=== PATIENT | female | born 2000 | race Hispanic/Latino ===

== ENCOUNTER 2020-02-16 10:57 | Emergency (ER) | payer SELFPAY ==
[2020-02-16 11:07] VITALS: BP 126/75
[2020-02-16] MEDS ORDERED: ONDANSETRON 4 MG ODT TAB PO ONE (11:41)
[2020-02-16] MEDS ORDERED: FAMOTIDINE 20 MG TAB PO ONE (11:42)
[2020-02-16] MEDS ORDERED: ACETAMINOPHEN 325 MG/10.15 ML ORAL LIQD UNIT DOSE PO ONE (11:43)
--- NOTE | 2020-02-16 11:43 | Emergency Department Report ---
ED General Adult HPI - General Chief complaint: Nausea/Vomiting/Diarrhea Stated complaint: COVID/SOB PUI?: Yes Time Seen by Provider: 02/16/20 11:20 Source: patient, RN notes reviewed Mode of arrival: Ambulatory Limitations: No Limitations - History of Present Illness Initial comments: During the entire history and physical, I had on complete personal protective equipment. I was chaperoned by nurse Allen Zaldivar The patient is a pleasant 19-year-old female who is not known to myself previously. She does not have a local primary care doctor. She states that she is not . She states that she was diagnosed with COVID-19 10 days ago at another hospital. She has been prescribed albuterol. She presents to the ER today with a complaint of shortness of breath, malaise and fatigue, nausea and vomiting, states initial emesis clear, then clear with flecks of blood, generalized malaise and fatigue There is no complaint of headache, neck pain, chest pain, abdominal pain, positive shortness of breath, positive dysuria, positive green and dark stool. Symptoms have been going on for the past week or so, nausea and vomiting started yesterday, she vomited 3 times in total, she went to another hospital, [facility], and appears to have been discharged. Shortness of breath is intermittent, worsens with physical exertion and decreases with rest. Denies DVT and pulmonary embolism risk factors -: Gradual, days(s) Consistency: intermittent Improves with: rest Worsens with: movement - Related Data Previous Rx's Medication Instructions Recorded Last Taken Type Acetaminophen [Non-Aspirin Extra 500 mg PO Q6HR PRN #30 tablet 02/16/20 Unknown Rx Strength] Albuterol Sulfate [Proair 90 mcg IH Q4HR PRN #2 aer.pow.ba 02/16/20 Unknown Rx Respiclick] Famotidine [Pepcid] 20 mg PO BID #60 tablet 02/16/20 Unknown Rx Ondansetron [Zofran Odt] 4 mg PO Q8HR PRN #20 tab.rapdis 02/16/20 Unknown Rx Allergies Allergy/AdvReac Type Severity Reaction Status Date / Time No Known Allergies Allergy Unverified 02/16/20 11:05 ED Review of Systems ROS: Stated complaint: COVID/SOB Other details as noted in HPI Constitutional: fever, malaise, weakness Eyes: denies: eye discharge ENT: congestion Respiratory: cough Cardiovascular: dyspnea on exertion Gastrointestinal: nausea, vomiting. denies: abdominal pain, constipation, melena, hematochezia Genitourinary: dysuria Musculoskeletal: arthralgia, myalgia Skin: denies: lesions Neurological: weakness Psychiatric: anxiety Hematological/Lymphatic: denies: easy bleeding ED Past Medical Hx - Past Medical History Previous Medical History?: Yes Additional medical history: Hx anemia. COVID+ 02/2020 - Surgical History Past Surgical History?: No - Medications Home Medications: Home Medications Medication Instructions Recorded Confirmed Last Taken Type Acetaminophen [Non-Aspirin Extra 500 mg PO Q6HR PRN #30 tablet 02/16/20 Unknown Rx Strength] Albuterol Sulfate [Proair 90 mcg IH Q4HR PRN #2 aer.pow.ba 02/16/20 Unknown Rx Respiclick] Famotidine [Pepcid] 20 mg PO BID #60 tablet 02/16/20 Unknown Rx Ondansetron [Zofran Odt] 4 mg PO Q8HR PRN #20 tab.rapdis 02/16/20 Unknown Rx ED Physical Exam - General Limitations: No Limitations General appearance: alert, in no apparent distress - Head Head exam: Present: atraumatic, normocephalic - Eye Eye exam: Present: normal appearance, EOMI. Absent: nystagmus - ENT ENT exam: Present: normal exam, normal orophraynx, mucous membranes moist, normal external ear exam - Neck Neck exam: Present: normal inspection, full ROM. Absent: tenderness, meningismus - Respiratory Respiratory exam: Present: normal lung sounds bilaterally. Absent: respiratory distress - Cardiovascular Cardiovascular Exam: Present: regular rate, normal rhythm, normal heart sounds. Absent: bradycardia, tachycardia, irregular rhythm, systolic murmur, diastolic murmur, rubs, gallop - GI/Abdominal GI/Abdominal exam: Present: soft, normal bowel sounds. Absent: distended, tenderness, guarding, rebound, rigid, pulsatile mass - Rectal Rectal exam: Present: normal inspection, normal rectal tone, heme (-) stool, other (chaperoned by BOBBY Zaldivar). Absent: heme (+) stool, bloody stool, fecal impaction, hemorrhoids - Extremities Exam Extremities exam: Present: normal inspection, full ROM, other (2+ pulses noted in the bilateral upper and lower extremities. There is no palpable cord. negative Homans sign. Muscular compartments are soft. The pelvis is stable.). Absent: pedal edema, calf tenderness - Back Exam Back exam: Present: normal inspection, full ROM. Absent: tenderness, CVA tenderness (R), CVA tenderness (L), paraspinal tenderness, vertebral tenderness - Neurological Exam Neurological exam: Present: alert, oriented X3, normal gait, other (No facial droop. Tongue midline. Extraocular movements intact bilaterally. Facial sensation intact to light touch in V1, V2, V3 distribution bilaterally. 5 and a 5 strength in 4 extremities. Sensation intact to light touch in 4 extremities.). Absent: motor sensory deficit - Psychiatric Psychiatric exam: Present: anxious - Skin Skin exam: Present: warm, dry, intact, normal color. Absent: rash ED Course Vital Signs 02/16/20 11:06 Temperature 99.7 F H Pulse Rate 99 H Respiratory 18 Rate Blood Pressure 126/75 [Right] O2 Sat by Pulse 98 Oximetry - Reevaluation(s) Reevaluation #1: 02/16/20 12:31 Differential diagnosis, including but not limited to: COVID-19, pneumonia, urinary tract infection, gastritis, GERD, reflux, Dorothy-Barajas tear Assessment and plan: 19-year-old female, recently diagnosed with COVID-19, presenting with shortness of breath, nausea vomiting, complaint of blood-tinged emesis, malaise and fatigue. The patient is afebrile with reassuring vital signs. She is guaiac negative on rectal exam, and hemoglobin, hematocrit are acceptable at this time. The patient is most likely experiencing the natural history of COVID-19. Patient was given an exercise trial, which she ambulated for 5 to 6 minutes on room oxygen, and maintained an appropriate oxygen saturations; saturations staye d 95 to 97%. We will treat her symptoms supportively and symptomatically. Appropriate screening laboratory studies, urinalysis pending at this time. We will reassess after her data points have resulted. Discussed this plan of care with the patient, who verbalized understanding. She was also given oral medication, which she did not vomit. 02/16/20 13:31 Laboratory studies are reviewed and appreciated. The urinalysis is not consistent with a urinary tract infection. The x-ray the chest is fairly unremarkable. Call the patient on her phone number, she endorses feeling much improved. I discussed the significance of the patient's examination, laboratory studies, x-ray, EKG, etc. She verbalizes understanding. Suspect that patient is experiencing the natural history of underlying COVID-19. She is suitable for discharge at this point in time. She verbalizes understanding. ED Medical Decision Making - Lab Data Result diagrams: 02/16/20 11:49 02/16/20 11:49 Vital Signs - 24 hr 02/16/20 11:06 Temperature 99.7 F H Pulse Rate 99 H Respiratory 18 Rate Blood Pressure 126/75 [Right] O2 Sat by Pulse 98 Oximetry Lab Results 02/16/20 02/16/20 Range/Units 11:49 11:49 WBC 6.2 (4.5-11.0) K/mm3 RBC 4.88 (3.65-5.03) M/mm3 Hgb 10.7 (10.1-14.3) gm/dl Hct 34.1 (30.3-42.9) % MCV 70 L (79-97) fl MCH 22 L (28-32) pg MCHC 31 (30-34) % RDW 18.2 H (13.2-15.2) % Plt Count 379 (140-440) K/mm3 Lymph % (Auto) 31.3 (13.4-35.0) % [place] % (Auto) 6.9 (0.0-7.3) % Eos % (Auto) 1.5 (0.0-4.3) % Baso % (Auto) 1.1 (0.0-1.8) % Lymph # 1.9 (1.2-5.4) K/mm3 [place] # 0.4 (0.0-0.8) K/mm3 Eos # 0.1 (0.0-0.4) K/mm3 Baso # 0.1 (0.0-0.1) K/mm3 Seg Neutrophils % 59.2 (40.0-70.0) % Seg Neutrophils # 3.7 (1.8-7.7) K/mm3 PT 14.1 (12.2-14.9) Sec. INR 1.11 (0.87-1.13) APTT 34.5 (24.2-36.6) Sec. - EKG Data -: EKG Interpreted by Co EKG shows normal: sinus rhythm Rate: normal - EKG Data When compared to previous EKG there are: previous EKG unavailable 02/16/20 12:28 Sinus rhythm, 86 bpm, there is a borderline leftward axis deviation, Q waves noted in 1 and aVL, early repolarization, motion artifact, MT interval within normal limits, QTC within normal limits, there is no prior EKG available for comparison, the EKG is not a STEMI - Radiology Data Radiology results: pending, report reviewed, image reviewed Print Report Referring Physician: GREGOR CASTELAN Patient Name: SHERIF MATA Date of : 2000 Sex: Female Report Date: 2020-02-16 Report Status: Finalized Findings [facility] [address] [place] [address] XRay Report Signed Patient: SHERIF MATA MR#: [id number] : 2000 Acct:[id number] Age/Sex: 19 / F ADM Date: 02/16/20 Loc: ED Attending Dr: Ordering Physician: GREGOR CASTELAN MD Date of Service: 02/16/20 Procedure(s): XR chest 1V ap Accession Number(s): [id number] cc: GREGOR CASTELAN MD Fluoro Time In Minutes: CHEST 1 VIEW 02/16/2020 11:59 AM INDICATION / CLINICAL INFORMATION: Nausea, vomiting, weakness. COMPARISON: None available. FINDINGS: SUPPORT DEVICES: None. HEART / MEDIASTINUM: No significant abnormality. LUNGS / PLEURA: No significant pulmonary or pleural abnormality. No pneumothorax. ADDITIONAL FINDINGS: No significant additional findings. IMPRESSION: 1. No acute findings. Signer Name: Emmett Vaca MD Signed: 02/16/2020 1:04 PM Workstation Name: [id number] Transcribed By: JACOB Dictated By: Emmett Vaca MD Electronically Authenticated By: Emmett Vaca MD Signed Date/Time: 02/16/20 1304 DD/ 1304 TD/TT: Critical Care Time: Yes Critical care time in (mins) excluding proc time.: 35 Critical care attestation.: If time is entered above; I have spent that time in minutes in the direct care of this critically ill patient, excluding procedure time. Critical Care Time: Critical care time includes time spent donning and doffing personal protective equipment, post patient contact decontamination, time spent performing history, physical, review of laboratory studies, radiology studies, EKG, and time spent discussing with patient in person significance of findings, natural expected history of COVID. This does not include procedure time. ED Disposition Clinical Impression: Suspected 2019 novel coronavirus infection, History of nausea and vomiting Disposition: DC-01 TO HOME OR SELFCARE Is pt being admited?: No Does the pt Need Aspirin: No Condition: Stable Instructions: COVID-19 Additional Instructions: Avoid consumption of Motrin, ibuprofen, Naprosyn, Aleve, heavy and spicy food. Avoid consumption of heavy and/or spicy food and alcohol. Take the prescribed medications as needed and directed. Please follow-up with your primary care doctor within 7 to 10 days. Suspect that patient is experiencing the natural history of COVID-19. Symptoms may include shortness of breath, malaise, fatigue, nausea, vomiting, diarrhea, body aches. Please make certain to self isolate and self quarantine, avoid exposure to the very young and very old, and avoid exposure and interactions with individuals with chronic medical conditions. Wash hands frequently, thoroughly, and often. Return to the emergency room right away with new pain, worsening pain, migration of pain, rectal vomiting, change in mental status, confusion, inability to tolerate liquid feeds, new, worsened or different symptoms not present on the initial emergency room evaluation. Referrals: MONICA MANZO MD [Staff Physician] - 7-10 days [facility] [Provider Group] - 7-10 days Forms: Work/School Release Form(ED)
[2020-02-16 12:16] LABS: Basophils # (Auto) 0.1 K/mm3 (0.0-0.1); Basophils % (Auto) 1.1 % (0.0-1.8); Eosinophils # (Auto) 0.1 K/mm3 (0.0-0.4); Eosinophils % (Auto) 1.5 % (0.0-4.3); Hematocrit 34.1 % (30.3-42.9); Hemoglobin 10.7 gm/dl (10.1-14.3); Lymphocytes # (Auto) 1.9 K/mm3 (1.2-5.4); Lymphocytes % (Auto) 31.3 % (13.4-35.0); Mean Corpuscular HGB Conc 31 % (30-34); Mean Corpuscular Volume 70 fl (79-97); Monocytes # (Auto) 0.4 K/mm3 (0.0-0.8); Monocytes % (Auto) 6.9 % (0.0-7.3); Platelet Count 379 K/mm3 (140-440); Red Blood Count 4.88 M/mm3 (3.65-5.03); Red Cell Distribution Width 18.2 % (13.2-15.2)
[2020-02-16 12:25] LABS: INR 1.11 (0.87-1.13)
[2020-02-16 12:26] LABS: Partial Thromboplastin Time 34.5 Sec. (24.2-36.6)
[2020-02-16 12:30] LABS: Alanine Aminotransferase 43 units/L (7-56); BUN/Creatinine Ratio 6; Blood Urea Nitrogen 5 mg/dL (7-17); Calcium 10.5 mg/dL (8.4-10.2); Hemolysis Index 0
[2020-02-16 13:00] LABS: Bacteria,Urine 1+ /HPF (Negative); Bilirubin,Urine NEG (Negative); Blood,Urine NEG (Negative); Color,Urine Straw (Yellow); Protein,Urine <15 mg/dL mg/dL (Negative); RBC,Urine < 1.0 /HPF (0.0-6.0); Urobilinogen,Urine < 2.0 mg/dL (<2.0)
== END 2020-02-16 13:44 | disposition home or self-care (01) ==
LOC: ED 10:57
DX: R06.02 Shortness of breath (principal); R11.2 Nausea with vomiting, unspecified; R53.83 Other fatigue; Z20.828 Contact with and (suspected) exposure to other viral communicable diseases
CPT/HCPCS: 36415; 71045; 80053; 81001; 82550; 83735; 84702; 85025; 85610; 85730; 87086; 93005; Q0162